=== PATIENT | female | born 1930 | race Asian ===

== ENCOUNTER 2016-07-16 15:03 | Emergency (ER) | payer MEDICARE, MEDICAID ==
[2005-03-06 11:40] VITALS: TEMP 97
[~2016-07-16] VITALS: Ht 152.4 cm; Wt 54.5 kg
[~2016-07-16 15:03] MED LIST: ALENDRONATE SOD70 MG PO; ASPIRIN 32325 MG/TAB PO; B-COMPLEX VITAM1 TAB PO; CARDI-OMEGA1000 MG PO; CARDIZEM CD360 MG PO; COZAAR100 MG PO; DIABETA 2.5MG2.5 MG PO; DIABETA5 MG PO; FOSAMAX 70MG TA70 MG PO; HCTZ 25MG25 MG PO; HYDROCHLOR50 MG PO; LABETALOL100 MG PO; OYSTER CALCIUM500 M1 PO; PRAVASTATIN20 MG PO; VITAMIN D1000 IU PO; VITAMIN D50000 I1 PO
[2016-07-16 15:55] VITALS: BP 135/61; PULSE 79; TEMP 96.8
== END 2016-07-16 16:08 | disposition home or self-care (01) ==
LOC: COL.ER 15:03 → EDBD 15:04 → COL.ER 15:04
DX: S30.0XXA Contusion of lower back and pelvis, initial encounter (principal); W05.0XXA Fall from non-moving wheelchair, initial encounter; E11.9 Type 2 diabetes mellitus without complications; Z79.84 Long term (current) use of oral hypoglycemic drugs; I10 Essential (primary) hypertension

== ENCOUNTER → 2017-10-15 | Outpatient (CLI) | payer MEDICARE, MEDICAID ==
[~2017-10-15] MED LIST changes: -ASPIRIN 32325 MG/TAB PO; +ASPIRIN 81M81 MG/TA2 PO; +COZAAR 50MG50 MG/TAB PO; -COZAAR100 MG PO; +GLUCOPHAGE500 MG/TAB PO; -LABETALOL100 MG PO; +NORMODYNE100 MG PO
== END ==
LOC: COL.RAD 09:32
DX: N26.1 Atrophy of kidney (terminal) (principal); R33.9 Retention of urine, unspecified

== ENCOUNTER → 2018-06-06 | Outpatient (CLI) | payer MEDICARE, MEDICAID | LOC: ZLAB.STJ 10:11 | DX: N39.0 Urinary tract infection, site not specified (principal) ==

== ENCOUNTER → 2018-06-09 | Outpatient (CLI) | payer MEDICARE, MEDICAID ==
[2018-06-09 16:22] LABS: COLLECTION METHOD CLEAN CATCH
[2018-06-09 16:28] LABS: MUCOUS Present /lpf; PH 6 (5-8); URINE APPEARANCE Hazy; URINE BACTERIA Rare /hpf; URINE BILIRUBIN Negative (NEGATIVE); URINE BLOOD Negative (NEGATIVE); URINE COLOR Yellow; URINE GLUCOSE 2+ (NEGATIVE); URINE KETONE Negative (NEGATIVE); URINE LEUKOCYTE ESTERASE 2+ (NEGATIVE); URINE NITRATE Negative (NEGATIVE); URINE PROTEIN(semi-quant) 1+ (NEGATIVE); URINE RBC 0-2 /hpf; URINE UROBILINOGEN Negative (NEGATIVE)
== END ==
LOC: ZLAB.STJ 16:20
PROVIDERS: Internal Medicine
DX: N39.0 Urinary tract infection, site not specified (principal)

== ENCOUNTER → 2018-07-07 | Outpatient (CLI) | payer MEDICARE, MEDICAID | LOC: ZLAB.STJ 11:03 → COL.LAB 11:03 | DX: Z01.89 Encounter for other specified special examinations (principal) ==

== ENCOUNTER → 2018-08-03 | Outpatient (CLI) | payer MEDICARE, MEDICAID | LOC: ZLAB.STJ 10:37 | DX: I10 Essential (primary) hypertension (principal) ==

== ENCOUNTER → 2018-08-05 | Outpatient (CLI) | payer MEDICARE, MEDICAID ==
[2018-08-05 12:16] LABS: CALCIUM 9.2 mg/dL (8.4-10.2); CREATININE, serum 0.94 mg/dL (0.52-1.25); POTASSIUM 4.6 mmol/L (3.4-5.0)
== END ==
LOC: ZLAB.STJ 11:45
PROVIDERS: Internal Medicine
DX: E11.9 Type 2 diabetes mellitus without complications (principal)

== ENCOUNTER → 2018-08-11 | Outpatient (REF) | LOC: ZLAB.STJ 16:11 | DX: E11.9 Type 2 diabetes mellitus without complications (principal) ==

== ENCOUNTER → 2018-08-11 | Outpatient (CLI) | payer MEDICARE, MEDICAID | LOC: ZLAB.STJ 16:11 | DX: E11.9 Type 2 diabetes mellitus without complications (principal) ==

== ENCOUNTER → 2018-10-07 | Outpatient (CLI) | payer MEDICARE, MEDICAID ==
[2018-10-07 12:15] LABS: CALCIUM 9.8 mg/dL (8.4-10.2); CREATININE, serum 1.03 (0.52-1.25); POTASSIUM 4.7 mmol/L (3.4-5.0)
== END ==
LOC: ZLAB.STJ 09:50
PROVIDERS: Internal Medicine
DX: R73.09 Other abnormal glucose (principal); R79.89 Other specified abnormal findings of blood chemistry

== ENCOUNTER → 2018-10-17 | Outpatient (REF) ==
[2018-10-17 13:54] LABS: COLLECTION METHOD CLEAN CATCH
[2018-10-17 14:05] LABS: MUCOUS Present /lpf; PH 7 (5-8); SQUAMOUS EPITHELIAL 0-2 /hpf; URINE APPEARANCE Hazy; URINE BACTERIA Rare /hpf; URINE BILIRUBIN Negative (NEGATIVE); URINE BLOOD Negative (NEGATIVE); URINE COLOR Yellow; URINE GLUCOSE 3+ (NEGATIVE); URINE KETONE Negative (NEGATIVE); URINE LEUKOCYTE ESTERASE 1+ (NEGATIVE); URINE NITRATE Negative (NEGATIVE); URINE PROTEIN(semi-quant) 2+ (NEGATIVE); URINE UROBILINOGEN Negative (NEGATIVE); URINE WBC 20-50 /hpf
== END ==
LOC: ZLAB.STJ 13:53
PROVIDERS: Internal Medicine
DX: R35.0 Frequency of micturition (principal)